=== PATIENT | male | born 1935 | race Two or more races ===

== ENCOUNTER 2020-03-18 17:22 | Emergency (ER) | payer OTHER ==
[~2020-03-18] VITALS: Ht 172.7 cm; Wt 71.0 kg
[2020-03-18] MEDS ORDERED: ACETAMINOPHEN 325MG TABLET PO STA (18:12)
[2020-03-18] MEDS ORDERED: SODIUM CHLORIDE 0.9% 500 ML IV ONE ×2 (18:15→19:45)
[2020-03-18] MEDS ORDERED: PIPERACILLIN/TAZ 3.375G PREMIX 50 ML IV ONE (18:15)
[2020-03-18 18:33] LABS: BASOPHILS % 0.1 % (0.0-2.0); HEMATOCRIT. 40.9 % (42.0-52.0); HEMOGLOBIN. 12.7 g/dL (14.0-18.0); LYMPHOCYTES % 18.6 % (20.0-50.0); MEAN CORPUSCULAR HEMOGLOBIN 22.3 pg (28.0-32.0); MEAN CORPUSCULAR VOLUME 71.6 fL (80.0-94.0); MEAN PLATELET VOLUME 9.2 fl (7.4-10.4); MONOCYTES % 8.6 % (2.0-8.0); NEUTROPHILS % 72.7 % (40.0-76.0); PLATELET 149 x1000/uL (130-400); RED BLOOD CELL COUNT 5.71 mill/uL (4.7-6.1); RED CELL DISTRIBUTION WIDTH 16.4 % (11.6-14.6)
[2020-03-18 18:33] LABS: CLARITY URINE CLEAR (CLEAR); COLOR URINE YELLOW (YELLOW); KETONES URINE TRACE (NEGATIVE); LEUKOCYTE ESTERASE URINE NEGATIVE (NEGATIVE); NITRITE URINE NEGATIVE (NEGATIVE); OCCULT BLOOD URINE 1+ (NEGATIVE); PROTEIN URINE 4+ (NEGATIVE); SPECIFIC GRAVITY URINE 1.023 (1.005-1.030); UROBILINOGEN URINE 0.2 E.U./dL (0.2-1.0)
[2020-03-18 18:40] LABS: CHLORIDE 103 mEq/L (98-107)
[2020-03-18 18:45] LABS: INR 0.9; PROTHROMBIN TIME 9.7 sec (9.6-11.0)
[2020-03-18] MEDS ORDERED: IOHEXOL-350 100 ML BOTTLE ONE (22:13)
[2020-03-19 00:53] VITALS: BP 163/80
== END 2020-03-19 02:29 | disposition short-term general hospital (02) ==
LOC: ER 17:22 → EDBEDREQ 19:13 → EDBEDREQTM 19:13 → ER 03-19 02:29 → CANBEDREQ 03-19 15:58
DX: U07.1 COVID-19 (principal); J12.89 Other viral pneumonia; G93.49 Other encephalopathy; I10 Essential (primary) hypertension; E11.9 Type 2 diabetes mellitus without complications; Z79.899 Other long term (current) drug therapy
CPT/HCPCS: 36415; 70450; 71045; 71275; 80053; 81003; 82728; 83605; 84145; 84443; 84484; 85025; 85384; 85610; 86140; 87040; 87077; 87086; 87186; 87635; 93005; 96361; 96365; 99291; J2543; J7030; J7040; Q9967